=== PATIENT | female | born 1965 | race Two or more races ===

== ENCOUNTER 2018-06-04 12:27 | Outpatient (CLI) | payer OTHER | END 2018-06-04 15:22 | disposition home or self-care (01) | LOC: MRI 12:27 | DX: M50.10 Cervical disc disorder with radiculopathy, unspecified cervical region (principal); M54.2 Cervicalgia; M54.5 Low back pain | CPT/HCPCS: 72141 ==

== ENCOUNTER 2018-08-28 10:07 | Outpatient (CLI) | payer OTHER | END 2018-08-28 10:17 | disposition home or self-care (01) | LOC: RAD 10:07 | DX: M25.511 Pain in right shoulder (principal) ==